=== PATIENT | male | born 1955 | race Caucasian/White ===

== ENCOUNTER 2025-06-27 12:38 | Emergency (ER) | payer MEDICARE, SELFPAY ==
[2025-06-27] VITALS (11 sets, daily range): BP systolic 112–130; BP diastolic 69–83; PULSE 69–124; RESP 14–20; TEMP 36.9; O2SAT 95–100
--- NOTE | ~2025-06-27 | CT_ITS ---
EXAMINATION: CT diagnostic chest w con DATE: 06/27/2025 14:12 INDICATION: Mediastinal mass on prior examination. TECHNIQUE: Computed tomography (CT) of the chest was performed with intravenous contrast. The dose-length product was 185.72 mGy-cm. COMPARISON: CT cervical spine dated 06/27/2025 FINDINGS: Heart size normal. No significant pleural or pericardial effusion. There is a left paratracheal lymph node measuring 3 x 1.2 cm, nonspecific. There appears to be of fat plane between the lymph node in the thyroid gland. The upper abdomen is unremarkable. No evidence for aortic aneurysm or dissection. There is emphysema. No endobronchial lesions. There is dependent atelectasis. IMPRESSION: 1. Left paratracheal lymph node enlargement in the superior mediastinum, nonspecific. This may be reactive, although metastatic disease is not excluded. 2: Emphysema. Reviewed, dictated and finalized at location O. IMPRESSION: 1. Left paratracheal lymph node enlargement in the superior mediastinum, nonspe cific. This may be reactive, although metastatic disease is not excluded. 2: Emphysema.
--- NOTE | ~2025-06-27 | CT_ITS ---
CT CERVICAL SPINE WITHOUT CONTRAST CLINICAL HISTORY: trauma Technique: Axial images thoracic inlet to skull base Sagittal and coronal reformats. No contrast CT images acquired with automatic exposure control for dose reduction DLP: 406 mGy-cm Comparison: None Findings: No acute fracture or listhesis. Straightening of normal cervical lordosis. Mild degenerative changes. Disc spaces maintained. Prevertebral soft tissues within normal limits. Visualized lung apices: Emphysema. Right upper lobe scarring. Visualized thyroid: Unremarkable. No enlarged cervical nodes. Soft tissue focus within anterior mediastinum immediately left lobe thyroid IMPRESSION: 1. No C-spine fracture. 2. Anterior mediastinal soft tissue focus. Possibly exophytic thyroid or parathyroid tissue. Recommend ultrasound and/or CT chest. Reviewed, dictated and finalized at location R. IMPRESSION: 1. No C-spine fracture. 2. Anterior mediastinal soft tissue focus. Possibly exophytic thyroid or parat hyroid tissue. Recommend ultrasound and/or CT chest.
--- NOTE | ~2025-06-27 | CT_ITS ---
EXAMINATION: CT brain wo con DATE: 06/27/2025 13:43 INDICATION: Trauma. TECHNIQUE: Computed tomography (CT) of the head was performed without intravenous contrast. The dose-length product was 605.33 mGy-cm. Automated exposure control and iterative reconstruction technique were employed. COMPARISON: None FINDINGS: Brain parenchymal volume is normal for age. No ventriculomegaly or midline shift. Basilar cisterns are patent. Paranasal sinuses and mastoids are pneumatized. No depressed skull fractures. No acute hemorrhage, infarction, mass or mass effect. Midline sagittal images demonstrate a normal corpus callosum and craniovertebral junction. IMPRESSION: 1. No acute intracranial abnormality. Reviewed, dictated and finalized at location O.
--- NOTE | 2025-06-27 12:45 | ECG_ITS ---
Test Date: 2025-06-27 12:47:08 Measurements Intervals [place] Rate: 121 P: 66 NC: 168 QRS: 52 QRSD: 94 T: 44 QT: 350 QTc: 497 Interpretive Statements SINUS TACHYCARDIA ABNORMAL RHYTHM ECG No previous ECG available for comparison Electronically Signed On 06-27-2025 15:24:32 CDT by Sridevi Dupree M.D.
--- NOTE | 2025-06-27 13:07 | ED_ITS ---
HPI - General Adult General Chief complaint: Seizure Stated complaint: syncopy vs seizure Time Seen by Provider: 06/27/25 12:44 History of Present Illness HPI narrative: 69-year-old male presents to the emergency department for evaluation for seizure-like activity and head injury. Patient reports that approximately living this morning he had some visual aura which he contributed to a pending migrate. Patient states he does not typically have migraines or auras. While patient was in [place] he states he was smelling something. Patient and went to go sit on the bench and while patient was sitting on the bench he had onset of shaking of his arms and fell back and struck his head. Patient then had some frothing of the mouth per the . Patient has no prior history of seizure. Upon arrival emergency department patient denies any pain or complaint. Patient is confused to some of the details of the event. Related Data Allergies Allergy/AdvReac Type Severity Reaction Status Date / Time No Known Allergies Allergy Verified 06/27/25 12:57 Review of Systems 2 Review of Systems: All systems reviewed & are unremarkable except as noted in HPI and below PMFSH Past Medical History Medical History Encounter for surgical aftercare following surgery on the digestive system Hypokalemia Acute appendicitis with perforation, localized peritonitis, and gangrene, without abscess (09/30/19) Postoperative ileus (~10/01/19) Overweight Smoker (Unknown) Acute appendicitis (~09/29/19) Surgical History Surgical History S/P laparoscopic appendectomy 10/06/2019 Family History Family History Mother No problems noted. Father No problems noted. Other Unknown family medical history Social History Social History Social History: 11/02/24 declined SDOH Smoking packs per day: 1 Smoking cigarettes per day: 20.0 Years smoked: 40 Smoking pack-years: 40.00 Smoking status: Former smoker Tobacco type: cigarettes Second hand tobacco smoke exposure: No Smoking end date: 10/03/17 Alcohol intake: current Drinks per week: 3 Substance use: never Substance use type: does not use Lack of Transportation: No Lack of Food: Never True Current Housing: I Have Housing Concerned About Future Housing: No Difficulty Paying Gas/Electric Bills: No Difficulty Paying for Meds: No Currently Unemployed: YES Education: High School Diploma/GED Difficulty w/ Childcare or Family Care: Decline to Answer Living arrangements: with family Gender identity (if verbalized by the patient): Male Spiritual care concerns: No Agree to blood products: Yes Exam 2 Narrative: APPEARANCE: Post ictal on arrival HEAD: normocephalic, atraumatic. EYES: PERRLA/EOMI, conjunctivae clear. NOSE: Normal no drainage EARS:TMS clear with good light reflex. THROAT: Pharynx clear, no exudate. NECK: Supple. No adenopathy, no masses. RESPIRATORY: Airway patent, respirations nonlabored. Clear to auscultation bilaterally, no rales, rhonchi, wheezing. CARDIOVASCULAR: Regular rate and rhythm without murmurs rubs or gallops. ABDOMINAL: Soft, nontender, nondistended, normal bowel sounds MUSCULOSKELETAL: Moves all extremities. Strength/ROM intact, No edema, No calf tenderness. NEURO: Alert. Cranial nerves II through XII intact. Good gait. Good coordination SKIN: Warm, dry. Normal Color Course Vital Signs Vital signs: Vital Signs Temperature 98.4 F 06/27/25 12:40 Pulse Rate 120 H 06/27/25 12:40 Respiratory Rate 17 06/27/25 12:40 Blood Pressure 130/83 06/27/25 12:40 Pulse Oximetry 96 06/27/25 12:40 Oxygen Delivery Room Air 06/27/25 12:40 Temperature 98.4 F 06/27/25 12:40 Pulse Rate 69 06/27/25 15:45 Respiratory Rate 17 06/27/25 15:45 Blood Pressure 130/82 06/27/25 15:20 Pulse Oximetry 98 06/27/25 15:45 Oxygen Delivery Room Air 06/27/25 12:57 Medical Decision Making MDM Narrative Medical decision making narrative: 69-year-old male presents to the emergency department for evaluation after having a first-time seizure. Patient is currently afebrile but does have a leukocytosis of 10.5 and hemoglobin 15.2. No acute abnormalities on the patient's CMP patient's initial lactic acid was 11.3. Patient was negative influenza RSV and for COVID, head CT was negative. Cervical CT showed no acute fracture but did show anterior mediastinal soft tissue focus possibly exophytic thyroid or parathyroid tissue. Recommended CT scan. CT scan of chest showed left paratracheal lymph node enlargement in the superior mediastinum, nonspecific. This may be reactive, although metastatic disease is not excluded. On re-evaluation patient does feel significantly improved. Patient is alert orientated and is back to his baseline. Patient does prefer to be discharged home and is comfortable with this plan. Neurology will be consulted. Differential Diagnosis Differential Diagnosis: Subdural hematoma, subarachnoid hemorrhage, COVID, RSV, influenza, pneumonia, UTI a, seizure, vasovagal Vital Signs Vital Signs: Vital Signs Temperature 98.4 F 06/27/25 12:40 Pulse Rate 120 H 06/27/25 12:40 Respiratory Rate 17 06/27/25 12:40 Blood Pressure 130/83 06/27/25 12:40 Pulse Oximetry 96 06/27/25 12:40 Oxygen Delivery Room Air 06/27/25 12:40 Temperature 98.4 F 06/27/25 12:40 Pulse Rate 69 06/27/25 15:45 Respiratory Rate 17 06/27/25 15:45 Blood Pressure 130/82 06/27/25 15:20 Pulse Oximetry 98 06/27/25 15:45 Oxygen Delivery Room Air 06/27/25 12:57 Lab Data Lab results reviewed: Yes I reviewed the patient's lab results. 06/27/25 13:04 06/27/25 13:04 Labs: Lab Results 06/27/25 06/27/25 06/27/25 Range/Units 13:02 13:03 13:04 WBC 10.5 H (4.5-10.0) K/mm3 RBC 4.70 (4.6-6.20) M/mm3 Hgb 15.2 (14.0-18.0) g/dL Hct 44.7 (42.0-52.0) % MCV 95.1 (80-100) fl MCH 32.3 (26-34) pg MCHC 34.0 (32-36) g/dl RDW 12.6 (11.5-14.5) % Plt Count 262 (150-375) k/mm3 MPV 9.3 (7.4-10.4) fl Immature Gran % (Auto) 0.4 (0-0.5) % Neut % (Auto) 45.0 L (45.5-73.1) % Lymph % (Auto) 44.0 (18.3-44.2) % Foster % (Auto) 8.9 H (2.6-8.5) % Eos % (Auto) 0.4 (0-4.4) % Baso % (Auto) 1.3 H (0.2-1.2) % Lymph # (Auto) 4.61 H (0.9-3.2) K/mm3 Foster # (Auto) 0.9 H (0.1-0.6) K/mm3 Eos # (Auto) 0.0 (0-0.3) K/mm3 Baso # (Auto) 0.1 (0.0-0.1) K/mm3 Abs Immat Gran (auto) 0.04 H (0.00-0.031) K/mm3 Absolute Neuts (auto) 4.7 (1.3-6.7) K/mm3 Absolute Nucleated RBC 0.000 (0.0-0.012) K/mm3 Nucleated RBC % 0.0 (0.0-0.2) % PT 13.6 (11.1-14.7) Seconds INR 1.0 APTT 27.4 (22.3-36.8) Seconds Sodium 137 (137-145) mmol/L Potassium 3.5 (3.4-5.0) mmol/L Chloride 105 (98-107) mmol/L Carbon Dioxide 11 L (22-30) mmol/L Anion Gap 21 H (4-12) mmol/L BUN 12 (9-20) mg/dL Creatinine 1.00 (0.7-1.3) mg/dL Estim Creat Clear Calc 63 ml/min Estimated GFR > 60 (59 - ) Glucose 123 H (65-110) mg/dL Lactic Acid 11.3 H* (0.7-2.0) mmol/L Calcium 8.8 (8.4-10.2) mg/dL Magnesium 2.0 (1.6-2.3) mg/dL Total Bilirubin 0.7 (0.2-1.3) mg/dL AST 45 (17-59) U/L ALT 38 (6-50) U/L Alkaline Phosphatase 62 (38-126) U/L Total Protein 7.7 (6.3-8.2) g/dL Albumin 4.4 (3.5-5.1) g/dL TSH (Reflex) 1.130 (0.465-4.68) uIU/mL Influenza A (RT-PCR) Negative (Negative) Influenza B (RT-PCR) Negative (Negative) RSV (RT-PCR) Negative (Negative) SARS-CoV-2 RNA (RT-PCR) Negative (Negative) Blood Type O Positive Antibody Screen Negative 06/27/25 Range/Units 15:25 WBC (4.5-10.0) K/mm3 RBC (4.6-6.20) M/mm3 Hgb (14.0-18.0) g/dL Hct (42.0-52.0) % MCV (80-100) fl MCH (26-34) pg MCHC (32-36) g/dl RDW (11.5-14.5) % Plt Count (150-375) k/mm3 MPV (7.4-10.4) fl Immature Gran % (Auto) (0-0.5) % Neut % (Auto) (45.5-73.1) % Lymph % (Auto) (18.3-44.2) % Foster % (Auto) (2.6-8.5) % Eos % (Auto) (0-4.4) % Baso % (Auto) (0.2-1.2) % Lymph # (Auto) (0.9-3.2) K/mm3 Foster # (Auto) (0.1-0.6) K/mm3 Eos # (Auto) (0-0.3) K/mm3 Baso # (Auto) (0.0-0.1) K/mm3 Abs Immat Gran (auto) (0.00-0.031) K/mm3 Absolute Neuts (auto) (1.3-6.7) K/mm3 Absolute Nucleated RBC (0.0-0.012) K/mm3 Nucleated RBC % (0.0-0.2) % PT (11.1-14.7) Seconds INR APTT (22.3-36.8) Seconds Sodium (137-145) mmol/L Potassium (3.4-5.0) mmol/L Chloride (98-107) mmol/L Carbon Dioxide (22-30) mmol/L Anion Gap (4-12) mmol/L BUN (9-20) mg/dL Creatinine (0.7-1.3) mg/dL Estim Creat Clear Calc ml/min Estimated GFR (59 - ) Glucose (65-110) mg/dL Lactic Acid 1.3 (0.7-2.0) mmol/L Calcium (8.4-10.2) mg/dL Magnesium (1.6-2.3) mg/dL Total Bilirubin (0.2-1.3) mg/dL AST (17-59) U/L ALT (6-50) U/L Alkaline Phosphatase (38-126) U/L Total Protein (6.3-8.2) g/dL Albumin (3.5-5.1) g/dL TSH (Reflex) (0.465-4.68) uIU/mL Influenza A (RT-PCR) (Negative) Influenza B (RT-PCR) (Negative) RSV (RT-PCR) (Negative) SARS-CoV-2 RNA (RT-PCR) (Negative) Blood Type Antibody Screen Imaging Data Radiologist's impression: Impressions Head CT 06/27/25 13:43 IMPRESSION: 1. No acute intracranial abnormality. Cervical Spine CT 06/27/25 13:44 IMPRESSION: 1. No C-spine fracture. 2. Anterior mediastinal soft tissue focus. Possibly exophytic thyroid or parathyroid tissue. Recommend ultrasound and/or CT chest. Chest CT 06/27/25 14:15 IMPRESSION: 1. Left paratracheal lymph node enlargement in the superior mediastinum, nonspecific. This may be reactive, although metastatic disease is not excluded. 2: Emphysema. Discharge Plan Discharge Clinical Impression: Seizure, Head injury, Mediastinal lymphadenopathy Patient Disposition: Home Condition: Stable Instructions: Antibiotic Form, New-Onset Seizure in Adults (ED) Additional Instructions: Follow seizure guidelines. Avoid driving until cleared by your neurologist. Have close follow-up with Neurology. If you have any worsening symptoms then please call or return to the emergency department. Close follow-up with your primary care physician regarding the incidental finding of mediastinal lymph nodes. Patient Language: Romanian Prescriptions: No Action albuterol sulfate 90 mcg/actuation HFA aerosol inhaler 2 inh inhalation Q4H PRN (Reason: shortness of breath or wheezing) Qty: 8.5 0RF azithromycin 250 mg tablet See Rx Instructions PO .COMPLEX Qty: 6 0RF Rx Instructions: take 500 mg today (day 1), then 250 mg for 4 days (days 2-5) PO methylprednisolone [Medrol (Jay)] 4 mg tablets,dose pack See Rx Instructions PO PER PKG DIR Qty: 21 0RF Rx Instructions: PO PER PKG DIR Follow-up/Referrals: Harry Powers MD [Physician, Neurology] UNKNOWN,DOCTOR [Primary Care Provider]
[2025-06-27 13:13] LABS: Hematocrit 44.7 % (42.0-52.0); Hemoglobin 15.2 g/dL (14.0-18.0); Immature Granulocyte Percent A 0.4 % (0-0.5); Lymphocytes Absolute Auto 4.61 K/mm3 (0.9-3.2); Mean Corpuscular HGB Conc 34.0 g/dl (32-36); Mean Corpuscular Hemoglobin 32.3 pg (26-34); Mean Corpuscular Volume 95.1 fl (80-100); Nucleated Red Blood Cells Absolute Auto 0.000 K/mm3 (0.0-0.012); Nucleated Red Blood Cells Perc 0.0 % (0.0-0.2); Platelet Count Result 262 k/mm3 (150-375); Red Blood Count 4.70 M/mm3 (4.6-6.20); White Blood Count 10.5 K/mm3 (4.5-10.0)
[2025-06-27 13:26] LABS: INR 1.0; Partial Thromboplastin Time 27.4 Seconds (22.3-36.8); Prothrombin Time 13.6 Seconds (11.1-14.7)
[2025-06-27] MEDS: LACTATED RINGERS 1,000 ML 999 ML IV CONT (13:29)
--- NOTE | 2025-06-27 13:30 | PC.NURSE ---
Pt to CT on portable monitor via stretcher at this time
[2025-06-27 13:31] LABS: Alanine Aminotransferase 38 U/L (6-50); Albumin Level 4.4 g/dL (3.5-5.1); Alkaline Phosphatase 62 U/L (38-126); Anion Gap 21 mmol/L (4-12); Aspartate Amino Transferase 45 U/L (17-59); Bilirubin,Total 0.7 mg/dL (0.2-1.3); Blood Urea Nitrogen 12 mg/dL (9-20); Calcium 8.8 mg/dL (8.4-10.2); Carbon Dioxide 11 mmol/L (22-30); Chloride 105 mmol/L (98-107); Estimated CRCL calculation 63 ml/min; Estimated Glomerular Filt Rate > 60; Glucose 123 mg/dL (65-110); Potassium 3.5 mmol/L (3.4-5.0); Sodium 137 mmol/L (137-145); Total Protein 7.7 g/dL (6.3-8.2)
[2025-06-27 13:47] LABS: Influenza A QL RT-PCR Negative (Negative); Influenza B QL RT-PCR Negative (Negative); RSV RNA, RT-PCR Negative (Negative); SARS-CoV-2 RNA PCR Negative (Negative)
[2025-06-27 13:58] LABS: Magnesium 2.0 mg/dL (1.6-2.3)
[2025-06-27 14:31] LABS: Thyroid Stimulating Hormone Reflex 1.130 uIU/mL (0.465-4.68)
--- OUTSIDE RECORDS SUMMARY | 2025-06-27 16:14 | XMS_ITS | Clinical Summary ---
Author Organization [facility] Address [address] [place] [address] Care Team Providers Care Executive Chef Assistant Name Role Phone Unavailable Primary Care Provider Unavailabl e Source Comments [facility],non-owned Affiliates and Associated Physician Practices is amultiple site organization consisting of ambulatory clinics and hospital sitesin [place], [place], [place] and [place]. This disclosure is being madepursuant to the Care Everywhere program and may not contain all information available regarding this patient. Last updated 18.[facility] Immunizations Immunization Administration Dates Next Due iNFLUENZA VACCINE, RECOM-GRAHAM, QUADR. (FLUBLOCK QUADRIVALENT; 18Y+) (RIV4) 07/15/2018 Social History Tobacco Use Types Packs/Day Years Used Date Smoking Tobacco: Never Assessed Sex and Gender Information Value Date Recorded Sex Assigned at Not on file Legal Sex Male 9:50 AM CDT Gender Identity Not on file Sexual Orientation Not on file Plan of Treatment Health Maintenance Due Date Last Done Comments COLOGUARD (AGES 45-75) - COL ON CA SCREENING 1957 COLON MONITORING 1957 COLONOSCOPY - COLON CA SCREENING 1957 CT COLONOGRAPHY - COLON CA SCREENING 1955 Colorectal Cancer Screening 1957 FIT - COLON CA SCREENING 1957 FLEX SIG - COLON CA SCREENING 1957 LIPID TESTING 1957 HEPATITIS C SCREENING 06/27/1975 DTAP/TDAP/TD VACCINES (1 - Tdap) 1976 PNEUMOCOCCAL VACCINE 50+ (1 of 1 - PCV) 2007 ZOSTER VACCINE (1 of 2) 2007 DEPRESSION SCREENING 10/03/2024 COVID-19 VACCINE (1 - 2023-2 5 season) 2025 INFLUENZA VACCINE (#1) 2025 07/15/2018 Respiratory Syncytial Virus (RSV) Vaccine Pt: or over 60 yrs (1 - 1-dose 75+ series) 2032 HEPATITIS B VACCINE Aged Out No longe r eligible based on patient's age to complete this topic HIB VACCINE Aged Out No longer eligi ble based on patient's age to complete this topic HPV VACCINE Aged Out No longer eligi ble based on patient's age to complete this topic MENINGOCOCCAL (Group B) VACC INE SHARED DECISION-MAKING Aged Out No longer eligibl e based on patient's age to complete this topic MENINGOCOCCAL GROUPS A/C/Y/W VACCINE Aged Out No longer eligible b ased on patient's age to complete this topic Insurance [facility] * Guarantor: RUSSELL LEGER Account Type Relation to Patient Date of Phone Billing Address Personal/[place] [address]
== END 2025-06-27 16:17 | disposition home or self-care (01) ==
PROVIDERS: Emergency Provider Emergency Medicine
DX: R56.9 Unspecified convulsions (principal); S09.90XA Unspecified injury of head, initial encounter; R59.0 Localized enlarged lymph nodes; D72.829 Elevated white blood cell count, unspecified; Z87.891 Personal history of nicotine dependence; W22.09XA Striking against other stationary object, initial encounter; Z20.822 Contact with and (suspected) exposure to COVID-19; Z79.899 Other long term (current) drug therapy
CPT/HCPCS: 36415; 70450; 71260; 72125; 80053; 83605; 83735; 84443; 85025; 85610; 85730; 86850; 86900; 86901; 87637; 93005; 96360; 99284; J7120; Q9967

== ENCOUNTER 2025-09-13 09:54 | Outpatient (CLI) | payer MEDICARE, SELFPAY ==
--- NOTE | ~2025-09-13 | US_ITS ---
EXAMINATION: US carotid duplex BI DATE: 09/13/2025 10:33 INDICATION: Epilepsy. Syncope. TECHNIQUE: Grayscale, color Doppler, and pulsed Doppler images of the cervical carotid arteries were obtained. The degree of vessel stenosis is placed in one of the following categories: normal, <50%, 50-69%, >=70% but less than near- occlusion, near-occlusion, or total occlusion. Note that percent stenosis relative to normal distal artery lumen diameter is indirectly measured from velocity measurements as described by Zack, et al. Radiology 2003; 229:340-346. COMPARISON: None. FINDINGS: RIGHT: The right common carotid artery (CCA) peak systolic velocity (PSV) is 89 cm/s. The right internal carotid artery (ICA) PSV is 93 cm/s. The right ICA end- diastolic velocity (EDV) is 23 cm/s. The right ICA/CCA PSV ratio is 1.1. Grayscale and color Doppler images yield an estimate of <50% diameter reduction from plaque in the ICA. The external carotid artery (ECA) PSV is 122 cm/s. There is antegrade flow in the right vertebral artery. LEFT: The left CCA PSV is 98 cm/s. The left ICA PSV is 59 cm/s. The left ICA EDV is 21 cm/s. The left ICA/CCA PSV ratio is 0.7. Grayscale and color Doppler images yield an estimate of <50% diameter reduction from plaque in the ICA. The ECA PSV is 80 cm/s. There is antegrade flow in the left vertebral artery. IMPRESSION: 1. <50% stenosis from minimal plaque in the right internal carotid artery. 2. <50% stenosis from minimal plaque in the left internal carotid artery. Reviewed, dictated and finalized at location A. 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
== END 2025-09-13 09:55 | disposition home or self-care (01) ==
PROVIDERS: PCP Physician Assistant Medical; Visit Provider Psychiatry & Neurology Neurology
DX: G40.909 Epilepsy, unspecified, not intractable, without status epilepticus (principal); I65.23 Occlusion and stenosis of bilateral carotid arteries
CPT/HCPCS: 93880

== ENCOUNTER 2025-09-20 12:14 | Outpatient (CLI) | payer MEDICARE, SELFPAY ==
--- OUTSIDE RECORDS SUMMARY | 2025-09-20 12:18 | XMS_ITS | Clinical Summary ---
Author Organization [facility] Address [address] [place] [address] Care Team Providers Care Primary Grade Teacher Name Role Phone Unavailable Primary Care Provider Unavailabl e Source Comments [facility],non-owned Affiliates and Associated Physician Practices is amultiple site organization consisting of ambulatory clinics and hospital sitesin [place], [place], [place] and [place]. This disclosure is being madepursuant to the Care Everywhere program and may not contain all information available regarding this patient. Last updated 18.[facility] Immunizations Immunization Administration Dates Next Due iNFLUENZA [...] DEPRESSION SCREENING 10/03/2024 COVID-19 VACCINE (1 - 2024-2 6 season) 2025 INFLUENZA VACCINE (#1) 2025 07/15/2018 [...] patient's age to complete this topic Insurance [facility] * Guarantor: RUSSELL LEGER Account Type Relation to Patient Date of Phone Billing Address [place] [phone]
--- OUTSIDE RECORDS SUMMARY | 2025-09-20 12:18 | XMS_ITS | Clinical Summary ---
Author Organization [facility] Address [address] [place] [id number] Care Team Providers Care Blanching Machine Operator Name Role Phone Amy Tran Primary Care Provider [phone] Encounters Date Type Department Care Team Description 07/04[facility]20[facility] [address] [place], [facility] Consult from Last 3 Months Immunizations Immunization Administration Dates Next Due Influenza Adult (Generic) 07/20/2022 Prevnar(Pcv 7) 08/03/2022 Social History Tobacco Use Types Packs/Day Years Used Date Smoking Tobacco: Never Assessed Sex and Gender Information Value Date Recorded Sex Assigned at Not on file Legal Sex Male 11:05 PM CDT Gender Identity Not on file Sexual Orientation Not on file Last Filed Vital Signs Vital Sign Reading Time Taken Comments Blood Pressure 122/74 05/28/2012 9:51 AM CDT Pulse 70 05/28/2012 9:51 AM CDT Temperature - - Respiratory Rate - - Oxygen Saturation - - Inhaled Oxygen Concentration - - Weight 75.3 kg (166 lb) 05/28/2012 9:51 AM CDT Height - - Body Mass Index - - Plan of Treatment Health Maintenance Due Date Last Done Comments Colorectal Cancer Screening Colonoscopy (10 Years) 1957 Hepatitis C 1975 DTaP, Tdap and Td Vaccines ( 1 - Tdap) 1976 Pneumococcal Vaccine: 50+ Years (1 of 1 - PCV) 2007 Annual Medicare Wellness Visit 2022 COVID-19 Vaccine (4 - 2024-2 6 season) 2025 09/17/2021, 01/28/2021, 01/05/2021 Influenza Adult (#1) 2025 07/20/2022, 06/24/2019, 07/15/2018 RSV Immunization or 60+ Years (1 - 1-dose 75+ series) 2032 Zoster Vaccines Completed 10/19/2018, 08/18/2018 Hepatitis A Vaccines Aged Out No long er eligible based on patient's age to complete this topic Meningococcal B Vaccine Aged Out No l onger eligible based on patient's age to complete this topic Meningococcal Vaccine Aged Out No meena sloane eligible based on patient's age to complete this topic RSV Immunizations Under 20 Months Aged Out No longer eligible b ased on patient's age to complete [place] [address] [facility] Care Teams Blanching Machine Operator Relationship Specialty Start Date End Date Amy Tran PA [address] [place] [id number] PCP - General PHYSICIAN FISHING TOOL OPERATOR 07/04/25
--- NOTE | 2025-09-20 13:54 | ECHO_ITS ---
Patient Info Name: Russell Delgado Age: 70 years : 1955 Gender: Male Ht: 69 in Wt: 185 lbs BSA: 2.04 m2 HR: 57 bpm BP: 135 / 76 mmHg Heart Rhythm: Sinus Rhythm Technical Quality: Good Exam Date: 09/20/2025 2:01 PM Patient Status: O Admit Date: 09/20/2025 Exam Type: CA echo doppler w bubble study Complete two-dimensional, color flow and Doppler transthoracic echocardiogram is performed with agitated saline. World Designer: Estefania Carlin Attending Provider: Harry Powers Contrast/Agitated Saline Contrast/Ag. Saline: Agitated Saline Amount: 20.00 ml Existing IV Access: Yes New IV Access: Left Site Condition: IV removed Summary 1. Left ventricular chamber dimension is normal. 2. Left ventricular systolic function is normal, estimated at 65-70. 3. The left ventricular diastolic function is grade II diastolic dysfunction. 4. E/e' 7 is not elevated. 5. Agitated saline injection with and without valsalva maneuver opacified right side cardiac chambers with significant shunt of bubbles to left side cardiac chambers suggestive of patent foramen ovale. 6. There is trace mitral valve regurgitation. 7. There is trace tricuspid valve regurgitation. 8. No pulmonary hypertension, estimated pulmonary arterial systolic pressure is 27 mmHg. 9. There is trace pulmonic regurgitation. Left Ventricle E/e' 7 is not elevated. Left ventricular chamber dimension is normal. Left ventricular systolic function is normal, estimated at 65-70. The left ventricular diastolic function is grade II diastolic dysfunction. Right Ventricle Right ventricular chamber dimension is normal. Right ventricular systolic function is normal and with normal TAPSE 2.3 cm. Left Atria Left atrial chamber dimension is normal. Right Atria Right atrial chamber dimension is normal. Atrial Septum Interatrial septum not well visualized by 2D and agitated saline imaging. Agitated saline injection with and without valsalva maneuver opacified right side cardiac chambers with significant shunt of bubbles to left side cardiac chambers suggestive of patent foramen ovale. Aortic Valve The aortic valve is trileaflet. There is no aortic valve stenosis. There is no aortic valve regurgitation. Pulmonic Valve There is trace pulmonic regurgitation. Mitral Valve There is no mitral valve stenosis. There is trace mitral valve regurgitation. Tricuspid Valve There is trace tricuspid valve regurgitation. No pulmonary hypertension, estimated pulmonary arterial systolic pressure is 27 mmHg. Pericardium/Pleural There is no pericardial effusion. Inferior Vena Cava Normal inferior vena cava with >50% collapse upon inspiration consistent with normal right atrial pressure, 5 mmHg. Aorta The aortic root size at the sinus of Valsalva is normal. Left Ventricular Outflow Tract Name Value Normal LVOT 2D LVOT Diameter 2.0 cm LVOT Doppler LVOT Peak Velocity 136 cm/s LVOT Peak Gradient 7 mmHg LVOT Mean Gradient 3 mmHg LVOT VTI 23 cm LVOT VTI/AV VTI Ratio 0.8 LVOT Stroke Volume 75 ml LVOT CO 4.5 l/min LVOT CI 2.2 l/min/m2 Pulmonic Valve Name Value Normal RVOT Doppler RVOT Peak Velocity 88 cm/s RVOT Peak Gradient 3 mmHg PV Doppler PV Peak Velocity 102 cm/s PV Peak Gradient 4 mmHg Mitral Valve Name Value Normal MV Diastolic Function MV E Peak Velocity 70 cm/s MV A Peak Velocity 68 cm/s MV E/A 1.0 MV Decel Time (PW) 224 ms MV Annular TDI MV E/e' (Septal) 7.1 Tricuspid Valve Name Value Normal TV Regurgitation Doppler TR Peak Velocity 236 cm/s TR Peak Gradient 22 mmHg Estimated PAP/RSVP RA Pressure 5 mmHg <=5 PA Systolic Pressure 27 mmHg <36 RV Systolic Pressure 27 mmHg <36 TV Annular TDI TV Lateral Velia s' Velocity 15.5 cm/s >=9.5 Aorta Name Value Normal Ascending Aorta Ao Root Diameter (MM) 2.9 cm Ao Root Diam Index (MM) 1.4 cm/m2 Aortic Valve Name Value Normal AV Doppler AV Peak Velocity 155 cm/s AV Peak Gradient 10 mmHg AV Mean Gradient 4 mmHg AV VTI 30 cm AV Area (Cont Eq VTI) 2.5 cm2 >=3.0 AV Area (Cont Eq Doni) 2.8 cm2 AV DI (Doni) 0.88 AV Regurgitation 2D LVOT Area 3.2 cm2 Ventricles Name Value Normal LV Dimensions 2D/MM IVS Diastolic Thickness (2D) 0.8 cm 0.6-1.0 LVID Diastole (2D) 5.8 cm 4.2-5.8 LVIW Diastolic Thickness (2D) 0.8 cm 0.6-1.0 LVID Systole (2D) 3.9 cm 2.5-4.0 LVOT Diameter 2.0 cm LV Mass (2D Cubed) 180.30 g 88.00-224.00 LV Mass Index (2D Cubed) 89 g/m2 49-115 Relative Wall Thickness (2D) 0.28 <=0.42 LV Fractional Shortening/Ejection Fraction 2D/MM LV Fractional Shortening (2D) 32 % 25-43 LV EF (2D Teichholz) 60 % LV Diastolic Volume (4C MOD) 76 ml LV EF (4C MOD) 71 % LV Diastolic Volume (2C MOD) 61 ml LV EF (2C MOD) 68 % LV Diastolic Volume (BP MOD) 70 ml 62-150 LV Diastolic Volume Index (BP MOD) 34 ml/m2 34-74 LV Systolic Volume (BP MOD) 21 ml 21-61 LV Systolic Volume Index (BP MOD) 11 ml/m2 11-31 LV EF (BP MOD) 69 % 52-72 LV Diastolic Length (4C) 7.7 cm LV Systolic Length (4C) 5.3 cm LV Stroke Volume (4C MOD) 54 ml Atria Name Value Normal LA Dimensions LA Dimension (MM) 4.3 cm 3.0-4.0 LA Volume (4C A-L) 51 ml LA Volume (BP A-L) 50 ml RA Dimensions RA Area (4C) 19.3 cm2 <=18.0 Report Signatures
--- NOTE | 2025-09-21 13:37 | P.NEURO_ITS ---
Neurology EEG Report General Information Date of Study: 09/20/25 TEST EEG DIAGNOSIS Epilepsy CONDITION OF RECORDING awake, drowsy and asleep. EEG NUMBER [id number] CLINICAL HISTORY 70 years old male who had an episode that is concerning for epilepsy. Patient was at [employer] with his and all he had to eat that day was yogurt non diabetic. He stated that he felt weird, as in he was seeing fuzzies and squiggles like before migraine. Patient told he needed to sit down and when he did, he blacked out and passed out. He fell backwards ,sitting down on a bench hit his head, but no injuries. He was taken to [facility] where he came to and just felt confused he was and what happened. EEG DESCRIPTION Basic resting occipital frequency consists of low to medium voltage 8 to 10 hertz per 2nd alpha admixed with low-voltage 15 to 18 hertz per 2nd beta. Alpha activity is symmetrically blocked with Opening of the eyes. During drowsiness low-voltage beta activity seen diffusely admixed with waxing and waning alpha. Multiple eye movement artifacts are noted. Low-voltage beta activity seen diffusely admixed with low-voltage alpha and theta activity during the earlier part of sleep with development of bilateral symmetrical sleep spindles during deeper stages of sleep. Photic stimulation produced normal drive. Hyperventilation produced normal and symmetrical buildup. Non paroxysmal. Nonfocal. Nonlateralizing. IMPRESSION No significant abnormalities noted. Clinical correlation recommended ,as the patient can have a normal EEG in spite of having the history of seizures.
== END 2025-09-20 12:15 | disposition home or self-care (01) ==
PROVIDERS: PCP Physician Assistant Medical; Visit Provider Psychiatry & Neurology Neurology
DX: G40.209 Localization-related (focal) (partial) symptomatic epilepsy and epileptic syndromes with complex partial seizures, not intractable, without status epilepticus (principal); R55 Syncope and collapse
CPT/HCPCS: 93242; 93306; 95816; 96375